=== PATIENT | male | born 1965 | race Caucasian/White ===

== ENCOUNTER 2019-04-10 11:13 | Day surgery (SDC) | payer OTHER ==
[~2019-04-10] VITALS: Ht 175.3 cm; Wt 95.2 kg
[~2019-04-10 11:13] MED LIST: LISINOPRIL; SIMVASTATIN
[2019-04-10 12:10] VITALS: Ht 175.3 cm; Wt 95.2 kg
[2019-04-10] MEDS ORDERED: PROPOFOL 200 MG INJ ONE (12:22)
[2019-04-10] MEDS ORDERED: PROPOFOL 40 ML ONE (12:22)
[2019-04-10] MEDS ORDERED: LIDOCAINE 2% (SDV) 5 ML INJ ONE (12:22)
[2019-04-10 12:28] VITALS: BP 130/74; PULSE 70; RESP 15
[2019-04-10 13:20] VITALS: BP 120/72; PULSE 80; RESP 16
[2019-04-10] MEDS ORDERED: FENTAnyl 50 MCG/ML VIAL IV PRN (13:30)
[2019-04-10 13:36] VITALS: BP 126/79; PULSE 75; RESP 14
== END 2019-04-10 16:08 | disposition home or self-care (01) ==
LOC: GIL 11:13
PROVIDERS: ATTEND Internal Medicine Gastroenterology
DX: Z12.11 Encounter for screening for malignant neoplasm of colon (principal); D12.2 Benign neoplasm of ascending colon; D12.0 Benign neoplasm of cecum; K64.8 Other hemorrhoids; I10 Essential (primary) hypertension
CPT/HCPCS: 45380; 88305; Z7610